=== PATIENT | female | born 1970 | race African-American/Black ===

== ENCOUNTER 2017-10-30 11:10 | Emergency (ER) | payer OTHER ==
[~2017-10-30] VITALS: Ht 170.2 cm; Wt 100.0 kg
[2017-10-30] MEDS ORDERED: ERYTHROMYC1 APPLICAT BOTH EYES (16:06)
[2017-10-30] MEDS ORDERED: FLONASE16 G1 BOTH NARES (16:06)
[2017-10-30 16:27] VITALS: BP 122/69
== END 2017-10-30 16:28 | disposition home or self-care (01) ==
LOC: EME 11:10
DX: H10.13 Acute atopic conjunctivitis, bilateral (principal); I10 Essential (primary) hypertension; J45.909 Unspecified asthma, uncomplicated; K21.9 Gastro-esophageal reflux disease without esophagitis; Z91.040 Latex allergy status
CPT/HCPCS: 99281; 99283